=== PATIENT | female | born 1980 | race Caucasian/White ===

== ENCOUNTER 2018-05-22 03:36 | Observation (INO) ==
[2018-05-22] MEDS ORDERED: Clindamycin 600 MG/50 ML 600 MG/50 ML IV.SOLN IVPB ONE (04:02)
[2018-05-22] MEDS ORDERED: Vancomycin 1,000 MG VIAL IVPB ONE (04:02)
--- NOTE | 2018-05-22 04:49 | Emergency Department Note ---
Disposition Clinical Impression: Cellulitis Qualifiers: Site of cellulitis: extremity Site of cellulitis of extremity: lower extremity Laterality: right Qualified Code(s): L03.115 - Cellulitis of right lower limb Disposition: Still a Patient Condition: Good Referrals: Ayla Mills CNP [Primary Care Provider] - Forms: ED Satisfaction Letter Time of Disposition: 07:23 General Adult HPI - General Chief complaint: ED Wound/Laceration Stated complaint: wound Time Seen by Provider: 05/22/18 03:46 Source: patient, family Limitations: no limitations - History of Present Illness HPI Narrative: This is a 37-year-old female who reports development of erythema on the medial aspect of both distal thighs over the course of the preceding 6 hours prior to arrival. She also reports mild erythema around both ankles. No nausea or vomiting. No known source of infection. Pain Scale: 10 - Related Data Home Medications Medication Instructions Recorded Confirmed Atomoxetine HCl [Strattera] 80 mg PO DAILY 05/22/18 05/22/18 Buspirone HCl [Buspar] 15 mg PO 05/22/18 Cephalexin [Keflex] 500 mg PO BID 05/22/18 05/22/18 Diclofenac Sodium [Voltaren] 50 mg PO Q8HR 05/22/18 05/22/18 Gabapentin [Neurontin] 800 mg PO QID 05/22/18 Lisinopril [Zestril] 10 mg PO DAILY 05/22/18 05/22/18 Omeprazole [PriLOSEC] 20 mg PO DAILY 05/22/18 05/22/18 Sulfamethoxazole/Trimeth DS 1 each PO BID 05/22/18 05/22/18 [Bactrim DS] Venlafaxine XR (24 HR) [Effexor XR] 75 mg PO DAILY 05/22/18 05/22/18 lamoTRIgine [Lamictal] 200 mg PO HS 05/22/18 05/22/18 Allergies Allergy/AdvReac Type Severity Reaction Status Date / Time aripiprazole [From Abilify] Allergy Hives Verified 10/02/16 02:24 Penicillins [PCN] Allergy Hives Verified 10/02/16 02:24 clindamycin AdvReac Nausea Verified 05/22/18 06:33 All systems ED: reviewed and negative except as stated. 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 - Social History Smoking Status: Former smoker Smokeless Tobacco Status: No Alcohol use: Reports: none Drug use: Reports: other Physical Exam - General Limitations: no limitations General appearance: alert, in distress (In mild to moderate distress from leg pain) - Head Head exam: atraumatic, normocephalic, normal inspection - Eye Eye exam: Present: normal appearance, PERRL, EOMI - Chest Chest inspection: Present: normal inspection, symmetric chest wall rise - Respiratory Respiratory exam: Present: normal lung sounds bilaterally - Cardiovascular Cardiovascular exam: Present: regular rate, normal rhythm, normal heart sounds - Abdominal Exam Abdominal exam: Present: soft, Non-Tender. Absent: tenderness, distention, guarding, rebound, rigidity - Extremities Exam Extremities exam: Present: tenderness (There is tenderness and erythema along the medial aspect of both thighs. On the right thigh the erythematous area measures 10 cm x 14 cm. Along the left thigh, the erythema and measures 11 x 15 cm; the pain in these regions appears to be significantly worsened with passive movement of either knee.) - Neurological Exam Neurological exam: Present: alert, oriented X3, CN II-XII intact. Absent: motor sensory deficit - Psychiatric Psychiatric exam: Present: normal affect, normal mood - Skin Skin exam: Present: warm, dry, erythema (Erythema as noted above) Course Course Narrative: This is a 37-year-old female with what she describes as rapidly progressive erythema and significant pain along the medial aspect of both distal thighs concerning for cellulitis or possibly necrotizing fasciitis. She does not have a fever and is not tachycardic. Vital Signs Temperature 98 F 05/22/18 03:39 Pulse Rate 96 05/22/18 03:39 Respiratory Rate 20 05/22/18 03:39 Blood Pressure 149/89 05/22/18 03:39 O2 Sat by Pulse Oximetry 96 05/22/18 03:39 Temperature 98 F 05/22/18 03:39 Pulse Rate 96 05/22/18 03:39 Respiratory Rate 20 05/22/18 03:39 Blood Pressure 149/89 05/22/18 03:39 O2 Sat by Pulse Oximetry 96 05/22/18 03:39 Oxygen Delivery Oxygen Delivery Room Air Medical Decision Making - MDM Narrative Medical decision making narrative: This is a 37-year-old female with what appears to be cellulitis of the distal medial bilateral thighs. The affected regions are of almost identical areas. I was initially concerned about possible necrotizing fasciitis, and ordered appropriate antibiotics for this. Necrotizing fasciitis appears to be very unlikely, though. She had no fever, there was no crepitus at the cellulitic areas, and there was no gas on x-ray. In addition, she has no leukocytosis whatsoever. On the other hand, she has already been started on cephalexin and Bactrim, and the areas of significant erythema started in spite of this. For this reason, she appears to warrant observation an additional antibiotic treatment with meropenem, vancomycin, and clindamycin until her condition improves. The patient was signed out to Dr. Avina at 7:15 AM - Lab Data Lab results reviewed: Yes I reviewed the patient's lab results. Lab results narrative: CBC was unremarkable BMP showed slight hypokalemia at 3.4 HEG was negative Result diagrams: 05/22/18 05:02 05/22/18 05:02 Lab Results 05/22/18 05/22/18 05/22/18 Range/Units 05:02 05:02 05:02 WBC 7.9 (4.3-11.1) K/mcL RBC 4.68 (3.82-4.97) M/mcL Hgb 12.5 (11.5-15.4) g/dL Hct 39.6 (35.3-44.9) % MCV 84.6 (83.0-100.0) fL MCH 26.7 L (28.0-33.3) pg MCHC 31.6 (31.6-35.5) g/dL RDW 13.2 (11.5-14.5) % Plt Count 355 (140-400) K/mcL MPV 9.5 (9.4-12.4) fL Seg Neutrophils % 32.0 % Band Neutrophils % 12.0 H (0-4) % Lymphocytes % 36.0 % Monocytes % 8.0 % Eosinophils % 12.0 % Neutrophils # 3.5 (1.6-8.9) K/mcL Lymphocytes # 2.8 (0.6-4.6) K/mcL Monocytes # 0.6 (0.0-1.3) K/mcL Eosinophils # 1.0 H (0.0-0.6) K/mcL Platelet Estimate Normal (Normal) Sodium 136 (136-145) mEq/L Potassium 3.4 L (3.5-5.1) mEq/L Chloride 98 (98-107) mEq/L Carbon Dioxide 28 (23-29) mEq/L BUN 9 (6-20) mg/dL Creatinine 0.58 L (0.60-1.20) mg/dL Est GFR ( Amer) > 60 (> 60) Est GFR (Non-Af Amer) > 60 (> 60) BUN/Creatinine Ratio 16 (6-26) Glucose 105 (70-105) mg/dL Calculated Osmolality 281 (280-300) Lactic Acid 0.7 (0.5-2.2) mmol/L Calcium 9.5 (8.6-10.3) mg/dL Serum , Qual (Negative) 05/22/18 Range/Units 05:02 WBC (4.3-11.1) K/mcL RBC (3.82-4.97) M/mcL Hgb (11.5-15.4) g/dL Hct (35.3-44.9) % MCV (83.0-100.0) fL MCH (28.0-33.3) pg MCHC (31.6-35.5) g/dL RDW (11.5-14.5) % Plt Count (140-400) K/mcL MPV (9.4-12.4) fL Seg Neutrophils % % Band Neutrophils % (0-4) % Lymphocytes % % Monocytes % % Eosinophils % % Neutrophils # (1.6-8.9) K/mcL Lymphocytes # (0.6-4.6) K/mcL Monocytes # (0.0-1.3) K/mcL Eosinophils # (0.0-0.6) K/mcL Platelet Estimate (Normal) Sodium (136-145) mEq/L Potassium (3.5-5.1) mEq/L Chloride (98-107) mEq/L Carbon Dioxide (23-29) mEq/L BUN (6-20) mg/dL Creatinine (0.60-1.20) mg/dL Est GFR ( Amer) (> 60) Est GFR (Non-Af Amer) (> 60) BUN/Creatinine Ratio (6-26) Glucose (70-105) mg/dL Calculated Osmolality (280-300) Lactic Acid (0.5-2.2) mmol/L Calcium (8.6-10.3) mg/dL Serum , Qual Negative (Negative) - Radiology Data Radiology results reviewed: Yes I reviewed the patient's radiology results. X-rays of the right and left side showed no evidence of gas in the tissue Critical Care Time Critical Care Time: No
[2018-05-22 05:37] LABS: Hematocrit 39.6 % (35.3-44.9); Hemoglobin 12.5 g/dL (11.5-15.4); Mean Corpuscular HGB Conc 31.6 g/dL (31.6-35.5); Mean Corpuscular Hemoglobin 26.7 pg (28.0-33.3); Mean Corpuscular Volume 84.6 fL (83.0-100.0); Mean Platelet Volume 9.5 fL (9.4-12.4); Platelet Count 355 K/mcL (140-400); Red Blood Count 4.68 M/mcL (3.82-4.97); Red Cell Distribution Width 13.2 % (11.5-14.5)
[2018-05-22] MEDS: Meropenem 1,000 MG in Water for inj. (sterile) 20 ML 10 ML IVP SCH ×2 (05:41→11:28)
[2018-05-22 05:50] LABS: BUN/Creatinine Ratio 16 (6-26); Blood Urea Nitrogen 9 mg/dL (6-20); Calcium 9.5 mg/dL (8.6-10.3); Carbon Dioxide 28 mEq/L (23-29); Chloride 98 mEq/L (98-107); Glucose 105 mg/dL (70-105); Osmolality,Calculated 281 (280-300); Potassium 3.4 mEq/L (3.5-5.1); Sodium 136 mEq/L (136-145); eGFR For Non-African Americans > 60 (> 60)
[2018-05-22] MEDS ORDERED: *HR* FentaNYL (PF) 100 MCG/2 ML VIAL IVP ONE (06:20)
[2018-05-22 06:43] LABS: Lymphocytes # 2.8 K/mcL (0.6-4.6); Monocytes # 0.6 K/mcL (0.0-1.3); Neutrophils # 3.5 K/mcL (1.6-8.9); Platelet Estimate Normal (Normal)
--- NOTE | 2018-05-22 07:26 | Emergency Department Note ---
Disposition Clinical Impression: Cellulitis Qualifiers: Site of cellulitis: extremity Site of cellulitis of extremity: lower extremity Laterality: right Qualified Code(s): L03.115 - Cellulitis of right lower limb Disposition: Admitted As Inpatient Condition: Good Referrals: Ayla Mills CNP [Primary Care Provider] - Forms: ED Satisfaction Letter General Adult HPI - General Chief complaint: ED Wound/Laceration Stated complaint: wound Time Seen by Provider: 05/22/18 03:46 Source: patient, family Limitations: no limitations - History of Present Illness Pain Scale: 10 - Related Data Home Medications Medication Instructions Recorded Confirmed Atomoxetine HCl [Strattera] 80 mg PO DAILY 05/22/18 05/22/18 Buspirone HCl [Buspar] 15 mg PO 05/22/18 Cephalexin [Keflex] 500 mg PO BID 05/22/18 05/22/18 Diclofenac Sodium [Voltaren] 50 mg PO Q8HR 05/22/18 05/22/18 Gabapentin [Neurontin] 800 mg PO QID 05/22/18 Lisinopril [Zestril] 10 mg PO DAILY 05/22/18 05/22/18 Omeprazole [PriLOSEC] 20 mg PO DAILY 05/22/18 05/22/18 Sulfamethoxazole/Trimeth DS 1 each PO BID 05/22/18 05/22/18 [Bactrim DS] Venlafaxine XR (24 HR) [Effexor XR] 75 mg PO DAILY 05/22/18 05/22/18 lamoTRIgine [Lamictal] 200 mg PO HS 05/22/18 05/22/18 Allergies Allergy/AdvReac Type Severity Reaction Status Date / Time aripiprazole [From Abilify] Allergy Hives Verified 10/02/16 02:24 Penicillins [PCN] Allergy Hives Verified 10/02/16 02:24 clindamycin AdvReac Nausea Verified 05/22/18 06:33 Musculoskeletal: Reports: other (There is pain on and erythema along the medial aspect of both thighs just proximal to the knees) Integumentary: Reports: other (Erythema as noted above) Past Medical History - Past Medical History Medical history: Reports: DVT, hepatitis, RA, other Surgical history: Reports: (2), orthopedic, other (Ankle fixation), other ([place] filter) 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 Please see their documentation for details. In brief 37-year-old female presenting with 4 days of what appears to be cellulitis of the lower extremities. Denies any tick bite or insect exposure. No history of diabetes. She was placed on Bactrim and Keflex by her primary care provider yesterday with worsening cellulitis ascending up to her thighs. She is hemodynamically stable here and well-appearing in no distress. There is noted to be erythema to the medial thighs as well as the ankles. There is no overlying soft tissue breakdown or crepitus. Imaging labs reviewed. Discussed with the patient. Agreeable with admission. Vital Signs Temperature 98 F 05/22/18 03:39 Pulse Rate 96 05/22/18 03:39 Respiratory Rate 20 05/22/18 03:39 Blood Pressure 149/89 05/22/18 03:39 O2 Sat by Pulse Oximetry 96 05/22/18 03:39 Temperature 98 F 05/22/18 03:39 Pulse Rate 96 05/22/18 03:39 Respiratory Rate 20 05/22/18 03:39 Blood Pressure 149/89 05/22/18 03:39 O2 Sat by Pulse Oximetry 96 05/22/18 03:39 Oxygen Delivery Oxygen Delivery Room Air Medical Decision Making - Lab Data Lab results reviewed: Yes I reviewed the patient's lab results. Result diagrams: 05/22/18 05:02 05/22/18 05:02 Lab Results 05/22/18 05/22/18 05/22/18 Range/Units 05:02 05:02 05:02 WBC 7.9 (4.3-11.1) K/mcL RBC 4.68 (3.82-4.97) M/mcL Hgb 12.5 (11.5-15.4) g/dL Hct 39.6 (35.3-44.9) % MCV 84.6 (83.0-100.0) fL MCH 26.7 L (28.0-33.3) pg MCHC 31.6 (31.6-35.5) g/dL RDW 13.2 (11.5-14.5) % Plt Count 355 (140-400) K/mcL MPV 9.5 (9.4-12.4) fL Seg Neutrophils % 32.0 % Band Neutrophils % 12.0 H (0-4) % Lymphocytes % 36.0 % Monocytes % 8.0 % Eosinophils % 12.0 % Neutrophils # 3.5 (1.6-8.9) K/mcL Lymphocytes # 2.8 (0.6-4.6) K/mcL Monocytes # 0.6 (0.0-1.3) K/mcL Eosinophils # 1.0 H (0.0-0.6) K/mcL Platelet Estimate Normal (Normal) Sodium 136 (136-145) mEq/L Potassium 3.4 L (3.5-5.1) mEq/L Chloride 98 (98-107) mEq/L Carbon Dioxide 28 (23-29) mEq/L BUN 9 (6-20) mg/dL Creatinine 0.58 L (0.60-1.20) mg/dL Est GFR ( Amer) > 60 (> 60) Est GFR (Non-Af Amer) > 60 (> 60) BUN/Creatinine Ratio 16 (6-26) Glucose 105 (70-105) mg/dL Calculated Osmolality 281 (280-300) Lactic Acid 0.7 (0.5-2.2) mmol/L Calcium 9.5 (8.6-10.3) mg/dL Serum , Qual (Negative) 05/22/18 Range/Units 05:02 WBC (4.3-11.1) K/mcL RBC (3.82-4.97) M/mcL Hgb (11.5-15.4) g/dL Hct (35.3-44.9) % MCV (83.0-100.0) fL MCH (28.0-33.3) pg MCHC (31.6-35.5) g/dL RDW (11.5-14.5) % Plt Count (140-400) K/mcL MPV (9.4-12.4) fL Seg Neutrophils % % Band Neutrophils % (0-4) % Lymphocytes % % Monocytes % % Eosinophils % % Neutrophils # (1.6-8.9) K/mcL Lymphocytes # (0.6-4.6) K/mcL Monocytes # (0.0-1.3) K/mcL Eosinophils # (0.0-0.6) K/mcL Platelet Estimate (Normal) Sodium (136-145) mEq/L Potassium (3.5-5.1) mEq/L Chloride (98-107) mEq/L Carbon Dioxide (23-29) mEq/L BUN (6-20) mg/dL Creatinine (0.60-1.20) mg/dL Est GFR ( Amer) (> 60) Est GFR (Non-Af Amer) (> 60) BUN/Creatinine Ratio (6-26) Glucose (70-105) mg/dL Calculated Osmolality (280-300) Lactic Acid (0.5-2.2) mmol/L Calcium (8.6-10.3) mg/dL Serum , Qual Negative (Negative) - Radiology Data Radiology results reviewed: Yes I reviewed the patient's radiology results. Femur X-Ray 05/22/18 04:57 IMPRESSION: No gas in the visualized soft tissues. D/ / Luis Ruvalcaba MD / Luis Ruvalcaba MD Interpreting Provider: Luis Ruvalcaba MD Baldo - Baldo Situation: Demographics, MOA Background: Presenting Complaint, Relevant PMH, Meds, & Allergies Assessment: Vital Signs, Course and respsone to treatment, Exam Concerns, Patient/Family Expectation, Pertinant Lab Results Recommendation: Barrier(s) to disposition, Recommendation based on pending studies, treatments, or consults Baldo Report Given to: Dr. Jhonatan Bland Repor Time: 07:33
--- NOTE | 2018-05-22 07:28 | Emergency Department Note ---
Disposition Clinical Impression: Cellulitis Qualifiers: Site of cellulitis: extremity Site of cellulitis of extremity: lower extremity Laterality: right Qualified Code(s): L03.115 - Cellulitis of right lower limb Disposition: Admitted As Inpatient Condition: Good Referrals: Ayla Mills CNP [Primary Care Provider] - Forms: ED Satisfaction Letter General Adult HPI - General Chief complaint: ED Wound/Laceration Stated complaint: wound Time Seen by Provider: 05/22/18 03:46 Source: patient, family Limitations: no limitations - History of Present Illness Pain Scale: 10 - Related Data Home Medications Medication Instructions Recorded Confirmed Atomoxetine HCl [Strattera] 80 mg PO DAILY 05/22/18 05/22/18 Buspirone HCl [Buspar] 15 mg PO 05/22/18 Cephalexin [Keflex] 500 mg PO BID 05/22/18 05/22/18 Diclofenac Sodium [Voltaren] 50 mg PO Q8HR 05/22/18 05/22/18 Gabapentin [Neurontin] 800 mg PO QID 05/22/18 Lisinopril [Zestril] 10 mg PO DAILY 05/22/18 05/22/18 Omeprazole [PriLOSEC] 20 mg PO DAILY 05/22/18 05/22/18 Sulfamethoxazole/Trimeth DS 1 each PO BID 05/22/18 05/22/18 [Bactrim DS] Venlafaxine XR (24 HR) [Effexor XR] 75 mg PO DAILY 05/22/18 05/22/18 lamoTRIgine [Lamictal] 200 mg PO HS 05/22/18 05/22/18 Allergies Allergy/AdvReac Type Severity Reaction Status Date / Time aripiprazole [From Abilify] Allergy Hives Verified 10/02/16 02:24 Penicillins [PCN] Allergy Hives Verified 10/02/16 02:24 clindamycin AdvReac Nausea Verified 05/22/18 06:33 Musculoskeletal: Reports: other (There is pain on and erythema along the medial aspect of both thighs just proximal to the knees) Integumentary: Reports: other (Erythema as noted above) Past Medical History - Past Medical History Medical history: Reports: DVT, hepatitis, RA, other Surgical history: Reports: (2), orthopedic, other (Ankle fixation), other ([place] filter) 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 - Social History Smoking Status: Former smoker Smokeless Tobacco Status: No Alcohol use: Reports: none Drug use: Reports: other Physical Exam - General Limitations: no limitations General appearance: alert, in distress (In mild to moderate distress from leg pain) Course Vital Signs Temperature 98 F 05/22/18 03:39 Pulse Rate 96 05/22/18 03:39 Respiratory Rate 20 05/22/18 03:39 Blood Pressure 149/89 05/22/18 03:39 O2 Sat by Pulse Oximetry 96 05/22/18 03:39 Temperature 98 F 05/22/18 03:39 Pulse Rate 96 05/22/18 03:39 Respiratory Rate 20 05/22/18 03:39 Blood Pressure 149/89 05/22/18 03:39 O2 Sat by Pulse Oximetry 96 05/22/18 03:39 Oxygen Delivery Oxygen Delivery Room Air Medical Decision Making - Lab Data Result diagrams: 05/22/18 05:02 05/22/18 05:02 Lab Results 05/22/18 05/22/18 05/22/18 Range/Units 05:02 05:02 05:02 WBC 7.9 (4.3-11.1) K/mcL RBC 4.68 (3.82-4.97) M/mcL Hgb 12.5 (11.5-15.4) g/dL Hct 39.6 (35.3-44.9) % MCV 84.6 (83.0-100.0) fL MCH 26.7 L (28.0-33.3) pg MCHC 31.6 (31.6-35.5) g/dL RDW 13.2 (11.5-14.5) % Plt Count 355 (140-400) K/mcL MPV 9.5 (9.4-12.4) fL Seg Neutrophils % 32.0 % Band Neutrophils % 12.0 H (0-4) % Lymphocytes % 36.0 % Monocytes % 8.0 % Eosinophils % 12.0 % Neutrophils # 3.5 (1.6-8.9) K/mcL Lymphocytes # 2.8 (0.6-4.6) K/mcL Monocytes # 0.6 (0.0-1.3) K/mcL Eosinophils # 1.0 H (0.0-0.6) K/mcL Platelet Estimate Normal (Normal) Sodium 136 (136-145) mEq/L Potassium 3.4 L (3.5-5.1) mEq/L Chloride 98 (98-107) mEq/L Carbon Dioxide 28 (23-29) mEq/L BUN 9 (6-20) mg/dL Creatinine 0.58 L (0.60-1.20) mg/dL Est GFR ( Amer) > 60 (> 60) Est GFR (Non-Af Amer) > 60 (> 60) BUN/Creatinine Ratio 16 (6-26) Glucose 105 (70-105) mg/dL Calculated Osmolality 281 (280-300) Lactic Acid 0.7 (0.5-2.2) mmol/L Calcium 9.5 (8.6-10.3) mg/dL Serum , Qual (Negative) 05/22/18 Range/Units 05:02 WBC (4.3-11.1) K/mcL RBC (3.82-4.97) M/mcL Hgb (11.5-15.4) g/dL Hct (35.3-44.9) % MCV (83.0-100.0) fL MCH (28.0-33.3) pg MCHC (31.6-35.5) g/dL RDW (11.5-14.5) % Plt Count (140-400) K/mcL MPV (9.4-12.4) fL Seg Neutrophils % % Band Neutrophils % (0-4) % Lymphocytes % % Monocytes % % Eosinophils % % Neutrophils # (1.6-8.9) K/mcL Lymphocytes # (0.6-4.6) K/mcL Monocytes # (0.0-1.3) K/mcL Eosinophils # (0.0-0.6) K/mcL Platelet Estimate (Normal) Sodium (136-145) mEq/L Potassium (3.5-5.1) mEq/L Chloride (98-107) mEq/L Carbon Dioxide (23-29) mEq/L BUN (6-20) mg/dL Creatinine (0.60-1.20) mg/dL Est GFR ( Amer) (> 60) Est GFR (Non-Af Amer) (> 60) BUN/Creatinine Ratio (6-26) Glucose (70-105) mg/dL Calculated Osmolality (280-300) Lactic Acid (0.5-2.2) mmol/L Calcium (8.6-10.3) mg/dL Serum , Qual Negative (Negative) Attestation Statement - Attestation Attestation: Care of patient assumed from Dr. Graham at 07:00 pending admission for LE cellulitis. Tearful on exam. Patient has circumferential erythema at her ankles with patchy erythema extending up to her proximal medial thighs. Labs reviewed by me indicating a 12% bandemia
--- NOTE | 2018-05-22 09:54 | Internal Med History&Physical ---
Date of Encounter: 05/22/18 Time of Encounter: 09:49 Internal Medicine - H&P: HPI Chief complaint: Redness and pain in lower extremities Admitted From: Emergency Dept Plans for Post Hospital Care: Home History of present illness: Ms. Valencia is a 37 year old female patient with a history of DVT, rheumatoid arthritis who presented to the ER with complaints of worsening swelling and redness in her lower extremities. Symptoms began over the past 4 days. She saw her primary care provider who put her on an antibiotic. However her symptoms do not improve. So she came to the ER yesterday. She was again discharged on oral antibiotics. She states that she took the antibiotics only for one day and as her symptoms were not improving and seemed to be getting worse she decided to come to the ER. She now has swelling just above her ankles on both legs with tenderness and pain and also has swelling and redness in her lower thighs. She has never had cellulitis in the past. She denies any injuries. She does get occasional swelling in her lower extremities. She also reports occasional shortness of breath with ambulation. No chest pain, orthopnea or PND. She also reports that she had flulike symptoms prior to onset of redness and cellulitis. She did have fevers and body aches but they have now resolved. Past Med Surg Social Fam HX - Past Medical History Medical history: DVT, hepatitis, RA, other Additional medical history: loups Psychiatric history: bipolar - Past Surgical History Surgical History: (2), orthopedic, other (Ankle fixation), other ( Millie filter) Additional surgical history: PUNCTURED BOWEL DURING ON A C SECTION, WITH REPAIR. SCREWS AND PLATES TO RIGHT ANKLE. ltc, wrist plate and screws - Social History Smoking Status: Former smoker Smokeless Tobacco Status: No Alcohol use: none Drug use: other Internal Medicine - H&P: Meds Atomoxetine HCl [Strattera] 80 mg PO DAILY 05/22/18 [History] Buspirone HCl [Buspar] 15 mg PO 05/22/18 [History] Cephalexin [Keflex] 500 mg PO BID 05/22/18 [History] Diclofenac Sodium [Voltaren] 50 mg PO Q8HR 05/22/18 [History] Gabapentin [Neurontin] 800 mg PO QID 05/22/18 [History] Lisinopril [Zestril] 10 mg PO DAILY 05/22/18 [History] Omeprazole [PriLOSEC] 20 mg PO DAILY 05/22/18 [History] Sulfamethoxazole/Trimeth DS [Bactrim DS] 1 each PO BID 05/22/18 [History] Venlafaxine XR (24 HR) [Effexor XR] 75 mg PO DAILY 05/22/18 [History] lamoTRIgine [Lamictal] 200 mg PO HS 05/22/18 [History] 3 Allergy/AdvReac Type Severity Reaction Status Date / Time aripiprazole [From Abilify] Allergy Hives Verified 10/02/16 02:24 Penicillins [PCN] Allergy Hives Verified 10/02/16 02:24 clindamycin AdvReac Nausea Verified 05/22/18 06:33 All Systems PM: A 10-system review of systems was performed and is negative for pertinent findings except as documented above in the HPI. - Constitutional Constitutional: fever(s), malaise, no chills, no night sweats - EENT Eyes: no change in vision, no discharge, no pain, no photophobia Ears: no ear discharge, no ear pain, no tinnitus Nose, mouth and throat: no dysphagia, no nasal discharge, no neck pain, no sore throat - Cardiovascular Cardiovascular ROS IM: no chest pain, no diaphoresis, no dyspnea, no lightheadedness, no palpitations, no syncope - Respiratory Respiratory: no cough, no dyspnea, no wheezing, no excessive phlegm production - Gastrointestinal Gastrointestinal: no abdominal pain, no diarrhea, no hematemesis, no hematochezia, no melena, no nausea, no vomiting - Genitourinary Genitourinary: no change in urinary stream, no dysuria, no flank pain, no hematuria - Musculoskeletal Musculoskeletal ROS IM: no numbness, no tingling - Integumentary Integumentary IM: erythema - Neurological Neurological ROS: no confusion, no convulsions, no focal weakness, no numbness, no tingling, no tremor(s) - Hematologic/Lymphatic Hematologic/Lymphatic: no easy bruising - Constitutional Vitals: Temp Pulse Resp BP Pulse Ox 97.9 F 69 16 131/88 96 05/22/18 09:41 05/22/18 09:41 05/22/18 09:41 05/22/18 09:41 05/22/18 09:41 General appearance: Present: cooperative, mild distress, A&O X 3, answers questions appropriately Exam: . - Neck Neck exam general surgery: Present: supple, trachea midline. Absent: lymphadenopathy - Respiratory Respiratory exam: Present: CTAB. Absent: accessory muscle use, rales, rhonchi, wheezes - Cardiovascular Cardiovascular exam: Present: RRR, +S1, +S2. Absent: diastolic murmur, gallop, rubs, systolic murmur - GI/Abdominal GI/Abdominal exam: Present: normal bowel sounds, soft, no peritoneal signs. Absent: distended, tenderness - Extremities Exam Extremities exam: Present: pedal edema, warm, radial pulses palpable and symmetrical. Absent: calf tenderness, cyanotic - Neurological Exam Neurological exam: Present: CN II-XII intact, oriented X3, no focal deficits, strengths equal and symetr throughout. Absent: facial droop, speech deficit - Skin Skin exam: Present: dry, erythema, intact Additional comments: Erythema and swelling involving the lower extremities. Circumferential swelling present on bilateral lower extremities just above the ankle extending to mid lower leg. Associated with tenderness and warmth. Erythema and swelling also noted on bilateral lower thighs on the medial surface. Internal Med - H&P Results - Labs CBC & Chem 7: 05/22/18 05:02 05/22/18 05:02 - Impressions Impressions Femur X-Ray 05/22/18 04:57 IMPRESSION: No gas in the visualized soft tissues. D/ / Luis Ruvalcaba MD / Luis Ruvalcaba MD Interpreting Provider: Luis Ruvalcaba MD Femur X-Ray 05/22/18 04:57 IMPRESSION: No gas in the visualized soft tissues. D/ / Luis Ruvalcaba MD / Luis Ruvalcaba MD Interpreting Provider: Luis Ruvalcaba MD - Assessment and plan (1) Cellulitis Current Visit: Yes Status: Acute Assessment and plan: Bilateral lower extremity cellulitis. Will treat with IV antibiotics as patient did not improve with outpatient antibiotics although she only took them for one day. Limb elevation. Monitor vital signs closely. She does have a history of prior DVT. Will get venous Doppler to look for recurrence which may have contributed to her current symptoms. Qualifiers: Site of cellulitis: extremity Site of cellulitis of extremity: lower extremity Laterality: unspecified laterality Qualified Code(s): L03.119 - Cellulitis of unspecified part of limb (2) Exertional dyspnea Current Visit: Yes Status: Acute Assessment and plan: Patient reports exertional dyspnea and pedal edema. We will check BNP. Also get 2-D echocardiogram. - Time Spent With Patient Total time spent is greater than 50% in coordination of care (as documented) at patient's floor/unit and/or counseling patient:
[2018-05-22] MEDS ORDERED: Naloxone 0.4 MG/ML INJ IVP PRN (10:17)
[2018-05-22] MEDS: Venlafaxine XR (24 HR) 75 MG CAP.ER.24H PO SCH (10:50)
[2018-05-22] MEDS: *HR* OxyCODONE Immed Rel 5 MG TABLET PO PRN ×2 (10:50→17:59)
[2018-05-22] MEDS: Gabapentin 400 MG CAPSULE PO SCH ×4 (10:50→20:29)
[2018-05-22] MEDS ORDERED: Vancomycin 0 MG in 0.9 % Sodium Chloride 250 ML IVPB SCH (11:00)
[2018-05-22] MEDS: lamoTRIgine 100 MG TABLET PO SCH (11:28)
[2018-05-22] MEDS: *HR* Heparin 5,000 UNIT/ML VIAL SQ SCH (16:59)
[2018-05-22] MEDS: Ondansetron 4 MG/2 ML VIAL IVP PRN (19:55)
[2018-05-22] MEDS ORDERED: lamoTRIgine 100 MG TABLET PO SCH (21:00)
[2018-05-22] MEDS: Acetaminophen 325 MG TABLET PO PRN (23:23)
[2018-05-23 03:55] LABS: Basophils % 0.4 %; Eosinophils # 0.6 K/mcL (0.0-0.6); Eosinophils % 8.3 %; Hematocrit 32.9 % (35.3-44.9); Immature Granulocytes % 0.4 % (0-4); Lymphocytes # 2.7 K/mcL (0.6-4.6); Lymphocytes % 38.2 %; Mean Corpuscular HGB Conc 32.2 g/dL (31.6-35.5); Mean Corpuscular Hemoglobin 27.2 pg (28.0-33.3); Mean Corpuscular Volume 84.6 fL (83.0-100.0); Mean Platelet Volume 9.4 fL (9.4-12.4); Monocytes # 0.6 K/mcL (0.0-1.3); Monocytes % 8.6 %; Neutrophils # 3.1 K/mcL (1.6-8.9); Platelet Count 345 K/mcL (140-400); Red Blood Count 3.89 M/mcL (3.82-4.97); Red Cell Distribution Width 13.4 % (11.5-14.5); Segmented Neutrophils % 44.1 %
[2018-05-23 03:57] LABS: Hemoglobin 10.6 g/dL (11.5-15.4)
[2018-05-23 04:03] LABS: BUN/Creatinine Ratio 19 (6-26); Blood Urea Nitrogen 10 mg/dL (6-20); Calcium 9.1 mg/dL (8.6-10.3); Carbon Dioxide 32 mEq/L (23-29); Chloride 103 mEq/L (98-107); Glucose 103 mg/dL (70-105); Osmolality,Calculated 287 (280-300); Sodium 139 mEq/L (136-145); eGFR For Non-African Americans > 60 (> 60)
[2018-05-23 04:15] LABS: Platelet Estimate Normal (Normal); Reactive Lymphocytes Present (Not Present)
[2018-05-23] MEDS: *HR* Heparin 5,000 UNIT/ML VIAL SQ SCH ×2 (06:05→17:25)
[2018-05-23] MEDS: *HR* OxyCODONE Immed Rel 5 MG TABLET PO PRN ×3 (08:07→19:48)
[2018-05-23] MEDS: lamoTRIgine 100 MG TABLET PO SCH (08:07)
[2018-05-23] MEDS: Gabapentin 400 MG CAPSULE PO SCH ×4 (08:07→19:48)
[2018-05-23] MEDS: Venlafaxine XR (24 HR) 75 MG CAP.ER.24H PO SCH (08:07)
--- NOTE | 2018-05-23 11:27 | Internal Med Progress Note ---
Hospitalist Progress Note - Encounter Date of Encounter: 05/23/18 Time of Encounter: 11:25 - Subjective Interval History: Synthroid at bedside. Patient no acute overnight events. Patient states that her swelling and redness and pain in her lower extremities is improved from admission. Patient had been on Keflex and Bactrim for one day prior to admission with worsening of her cellulitis. Patient denies any history of previous cellulitis is unsure of etiology of it although she does have a small abrasion on her left lower anterior calhoun. Patient does report subjective fevers at home as well. Blood cultures have been negative and patient remains on IV vancomycin. Patient denies any chest pain, shortness breath or nausea, vomiting, diarrhea. - Exam Vitals: Temp Pulse Resp BP Pulse Ox 98.0 F 75 16 112/74 98 05/23/18 06:11 05/23/18 06:11 05/23/18 06:11 05/23/18 08:03 05/23/18 06:11 Exam: Constitutional: No acute distress, Alert Psych: AAO x 3 HEENT: NCAT Neck: supple, no JVD Cardio: regular rate and rhythm, +s1s2, no murmurs Resp: clear to ascultation bilaterally Abd: soft, non tender/non distended, positive bowel sounds Extremities: Bilateral lower extremities with nonpitting edema. The patient states is much improved. The patient does have remaining erythema and mild tenderness to palpation of her lower anterior shins however this area is significantly improved from the demarcated outline the area; patient has no pain out of proportion and no streaking noted patient does have a small abrasion left lower anterior calhoun; toes examined and no evidence of fungal infection; no crepitus appreciated Neuro: no focal deficits appreciated Lymph: no cervical/supraclavicular adenopahty apprecitated - Assessment and Plan (1) Cellulitis Current Visit: Yes Status: Acute Assessment and Plan: -Bilateral lower extremity cellulitis -Significant improvement on IV vancomycin -Continue IV vancomycin for 24 more hours and if continues to improve we will transition to oral doxycycline with oral Keflex -Monitor blood cultures -Ultrasound of lower extremity did not reveal any thrombosis (2) Exertional dyspnea Current Visit: Yes Status: Acute Assessment and Plan: -Patient reports exertional dyspnea and pedal edema -BNP is 6 -Echocardiogram unremarkable DVT Prophylaxis: -sq heparin - Summary of Assessment and Plan Summary of Assessment and Plan: Improving cellulitis; continue IV antibiotics for 24 more hours and likely transition to orals and anticipate discharge in a.m. - Time Spent with Patient Total time spent is greater than 50% in coordination of care (as documented) at patient's floor/unit and/or counseling patient: 25 - 35 minutes Internal Medicine: Result - Labs CBC & Chem 7: 05/23/18 03:26 05/23/18 03:26 Labs: Short CBC 05/23/18 Range/Units 03:26 WBC 7.1 (4.3-11.1) K/mcL Hgb 10.6 L D (11.5-15.4) g/dL Hct 32.9 L (35.3-44.9) % Plt Count 345 (140-400) K/mcL Neutrophils # 3.1 (1.6-8.9) K/mcL BMP 05/23/18 03:26 Sodium 139 Potassium 4.0 Chloride 103 Carbon Dioxide 32 H BUN 10 Creatinine 0.53 L Glucose 103 Calcium 9.1 - Impressions Impressions Echocardiogram 05/22/18 10:20 Impressions: LVEF 60-65%. Normal LV chamber size, wall thickness and function. Normal left ventricular diastolic function. Normal right ventricular structure and function. No evidence of pulmonary hypertension. Consult Discharge Plan - Plan Referrals: Ayla Mills, JORDAN [Primary Care Provider] - (1) Cellulitis Qualifiers: Site of cellulitis: extremity Site of cellulitis of extremity: lower extremity Laterality: unspecified laterality Qualified Code(s): L03.119 - Cellulitis of unspecified part of limb
[2018-05-23] MEDS ORDERED: Aminoglycoside Consult 1 EACH MC ONE (13:24)
[2018-05-23] MEDS: Acetaminophen 325 MG TABLET PO PRN (19:48)
[2018-05-23] MEDS: Ondansetron 4 MG/2 ML VIAL IVP PRN (21:33)
[2018-05-24] MEDS: *HR* Heparin 5,000 UNIT/ML VIAL SQ SCH (06:24)
[2018-05-24] MEDS: lamoTRIgine 100 MG TABLET PO SCH (08:17)
[2018-05-24] MEDS: Venlafaxine XR (24 HR) 75 MG CAP.ER.24H PO SCH (08:18)
[2018-05-24] MEDS: Gabapentin 400 MG CAPSULE PO SCH ×2 (08:18→11:06)
[2018-05-24] MEDS: *HR* OxyCODONE Immed Rel 5 MG TABLET PO PRN (08:23)
--- NOTE | 2018-05-24 11:53 | Discharge Summary ---
- NOTES TO OUTPATIENT PROVIDER Notes to Outpatient Provider: Patient presented with cellulitis that failed outpatient treatment. Improved rapidly on vancomycin. Will be discharged on by mouth Keflex and doxycycline to complete a 10 day total course. Date of Encounter: 05/24/18 Time of Encounter: 11:51 - Discharge Diagnosis (1) Cellulitis Priority: Primary Status: Acute Qualifiers: Site of cellulitis: extremity Site of cellulitis of extremity: lower extremity Laterality: unspecified laterality Qualified Code(s): L03.119 - Cellulitis of unspecified part of limb (2) Exertional dyspnea Priority: Secondary Status: Acute Hospital course: Ms. Valencia is a 37 year old female who presented to the emergency department with chief complaint of lower leg pain and cellulitis. The patient had been on outpatient antibiotics for 1 day and failed to improve. Patient was started on IV vancomycin and had rapid improvement of her cellulitis in hospital. The patient will be discharged home on by mouth Keflex and by mouth doxycycline to be taken as prescribed for 10 day total course. He was instructed to return to her primary care physician within one week for reevaluation. The patient requested pain medication for continued pain in her lower extremities and three- day course of when necessary Gould was prescribed. Patient stable for discharge on 05/24/2018 and agreeable. All questions answered. Discharge discussed with: patient, nurse - Time Spent with Patient Total time spent providing and/or coordinating discharge services: Less than 30 minutes - Discharge Medications Prescriptions: Cephalexin [Keflex] 500 mg PO QID 8 Days #30 capsule Doxycycline 100 mg PO BID 8 Days #17 capsule HYDROcodone/Acet 5/325 mg [Gould 5-325 mg] 1 tab PO BID PRN 3 Days #6 tab PRN Reason: Pain Home Medications: Atomoxetine HCl [Strattera] 80 mg PO DAILY 05/22/18 [History] Buspirone HCl [Buspar] 15 mg PO TID 05/22/18 [History] Diclofenac Sodium [Voltaren] 50 mg PO Q8HR 05/22/18 [History] Gabapentin [Neurontin] 800 mg PO QID 05/22/18 [History] Lisinopril [Zestril] 10 mg PO DAILY 05/22/18 [History] Omeprazole [PriLOSEC] 20 mg PO DAILY 05/22/18 [History] Venlafaxine XR (24 HR) [Effexor XR] 75 mg PO DAILY 05/22/18 [History] lamoTRIgine [Lamictal] 200 mg PO HS 05/22/18 [History] Cephalexin [Keflex] 500 mg PO QID 8 Days #30 capsule 05/24/18 [Rx] Doxycycline 100 mg PO BID 8 Days #17 capsule 05/24/18 [Rx] HYDROcodone/Acet 5/325 mg [Gould 5-325 mg] 1 tab PO BID PRN 3 Days #6 tab [Rx] Allergies/Adverse Reactions: 3 Allergy/AdvReac Type Severity Reaction Status Date / Time aripiprazole [From Abilify] Allergy Hives Verified 10/02/16 02:24 Penicillins [PCN] Allergy Hives Verified 10/02/16 02:24 clindamycin AdvReac Nausea Verified 05/22/18 06:33 Date of admission: 05/22/18 07:37 Primary care physician: Ayla Mills Consults: 05/22/18 08:49 Consult to Invasive Line Access Team [CONS] Routine Reason for Consult: midline placement Line Type: Midline PICC line indications: Limited vascular access - Constitutional Vitals: Temp Pulse Resp BP Pulse Ox 98.1 F 96 16 118/73 97 05/24/18 07:56 05/24/18 07:56 05/24/18 07:56 05/24/18 07:56 05/24/18 07:56 General appearance: Present: cooperative, mild distress, A&O X 3, answers questions appropriately Exam: Constitutional: No acute distress, Alert Psych: AAO x 3 HEENT: NCAT Neck: supple, no JVD Cardio: regular rate and rhythm Resp: clear to ascultation bilaterally Abd: soft, non tender/non distended, positive bowel sounds Extremities: Edema is now resolved and lower extremities; erythema is nearly resolved; there is no warmth; no crepitus or streaking Lymph: no cervical/supraclavicular adenopahty apprecitated - Patient Status Disposition: Home, Self-Care Condition: Good Functional capacity at discharge: independent ambulation Overall status at discharge: patient is progressing back to baseline - Discharge Instructions Follow Up With: Ayla Mills, BONBON DIPPER [Primary Care Provider] - - Diet and Activity Activity: increase activity as tolerated Diet: advance to your usual diet
[2018-05-24 11:56] VITALS: BP 136/88
[2018-05-24] MEDS ORDERED: cephALEXin 500 MG CAPSULE PO ONE (12:00)
[2018-05-24] MEDS ORDERED: Doxycycline 100 MG CAPSULE PO SCH (12:00)
== END 2018-05-24 13:25 | disposition home or self-care (01) ==
LOC: EMEROOARM 03:36 → 3BNU 03:36
PROVIDERS: ADMIT Family Medicine; ATTEND Family Medicine